=== PATIENT | female | born 1955 | race Caucasian/White ===

== ENCOUNTER 2024-08-14 13:18 | Emergency (ER) | payer MEDICARE ==
[2024-08-14 14:51] LABS: Platelet Count 112 10x3/uL (150-450)
[2024-08-14 14:52] LABS: #Basophils 0.03 10x3/uL (0.0-0.2); #Eosinophils 0.05 10x3/uL (0.0-0.5); #Monocytes 0.25 10x3/uL (0.0-1.1); #Neutrophils 1.52 10x3/uL (1.5-8.4); %Basophils 1.3 % (0.0-2.0); %Eosinophils 2.2 % (0.0-6.0); %Lymphocytes 16.4 % (18.0-47.0); %Monocytes 10.8 % (0.0-10.0); %Neutrophils 65.4 % (40.0-75.0); Hematocrit 27.4 % (34.9-44.5); Hemoglobin 10.1 g/dL (12.0-15.5); Mean Corpuscular HGB CONC 36.9 g/dL (32.0-36.0); Mean Corpuscular Hemoglobin 36.9 pg (27.0-33.0); Mean Platelet Volume 10.5 fL (7.4-10.4); RBC Distribution Width 13.8 % (11.5-14.5); Red Blood Cell (RBC) Count 2.74 10x6/uL (3.90-5.03); White Blood Cell (WBC) Count 2.32 10x3/uL (3.5-10.5)
[2024-08-14 15:16] LABS: Bilirubin Neg (Negative); Blood, Urine 25 (Negative); Clarity Cloudy (Clear); Glucose, Urine (Dipstick) Normal (Negative); Ketone, Urine Negative (Negative); Leukocyte 500 (Negative); Nitrite Positive (Negative); Protein, Urine (Dipstick) 30 mg/dl (Neg-Trace); Urobilinogen Normal mg/dL (Less than 2); pH, Urine 6.5 (5.0-9.0)
[2024-08-14 15:18] LABS: Troponin I Less than 0.010 ng/mL (< 0.028)
[2024-08-14 15:23] LABS: ALT (SGPT) 19 U/L (Less than 34); AST (SGOT) 25 U/L (11-34); Albumin 2.9 g/dL (3.1-4.5); Alkaline Phosphatase 44 U/L (40-110); Anion Gap 13 mmol/L (10-20); BUN (Urea Nitrogen) 11 mg/dL (9.8-20.1); Bilirubin, Total 0.9 mg/dL (0.3-1.2); Calc. Creatinine Clearance 0 mL/min (70-130); Calcium 9.3 mg/dL (7.8-10.44); Carbon Dioxide 28 mmol/L (23-31); Chloride 101 mmol/L (98-107); Estimated GFR 78; Globulin 2.8 g/dL (2.4-3.5); Glucose 73 mg/dL (80-115); Magnesium 1.7 mg/dL (1.6-2.6); Potassium 2.9 mmol/L (3.5-5.1); Protein, Total 5.7 g/dL (5.8-8.1); Sodium 139 mmol/L (136-145)
[2024-08-14] MEDS ORDERED: Potassium Chloride 20 MEQ TAB ONE (16:02)
[2024-08-14 16:41] LABS: Bacteria/HPF 3+ HPF (None Seen); CAUTI Indications for Culture Immunosuppressed; Mucous/LPF 1+ LPF (<2+); Squamous Epithelial 0-3 HPF (0-3); WBC/HPF Greater Than 50 HPF (0-3)
[2024-08-14 16:43] LABS: Urine Culture Reflex Yes Yes
[2024-08-14] MEDS ORDERED: cefTRIAXone (ROCEPHIN) 1 GM VIAL ONE ×2 (16:48→16:54)
== END 2024-08-14 17:39 | disposition home or self-care (01) ==
LOC: CSHERS 13:18
DX: N39.0 Urinary tract infection, site not specified (principal); E87.6 Hypokalemia; I48.91 Unspecified atrial fibrillation; Z79.01 Long term (current) use of anticoagulants
CPT/HCPCS: 71045; 80053; 81001; 83735; 83880; 84484; 85025; 87077; 87086; 93005; J0696; 36415; 87186; 96365